=== PATIENT | male | born 1975 | race Caucasian/White ===

== ENCOUNTER 2016-09-29 09:44 | Emergency (ER) | payer OTHER ==
[~2016-09-29] VITALS: Ht 193 cm; Wt 79.6 kg
[2016-09-29 09:51] VITALS: BP 135/83; PULSE 79; TEMP 36.9; O2SAT 97; Ht 193 cm; Wt 79.6 kg
--- NOTE | 2016-09-29 10:03 | EMERGENCY ROOM VISIT NOTE ---
ED Visit Note First contact with patient: 09:55 CHIEF COMPLAINT: Tick bite HISTORY OF PRESENT ILLNESS: This 40-year-old male patient presents to the emergency department ambulatory after they noticed a tick embedded in the right side of his abdomen today. The patient did not try to remove it. It had been on for less than 24 hours. The patient was in the [facility] recently. The patient' s tetanus shot is up-to-date. The patient denies any rashes, fevers, chills, or lightheadedness. The patient denies joint tenderness. REVIEW OF SYSTEMS: A 6 system review of systems was completed with positives and pertinent negatives listed in the HPI. ALLERGIES: No known drug allergies MEDICATIONS: None PMH: None SOCIAL HISTORY: Known PHYSICAL EXAM: Vital Signs: Reviewed Nurse's notes, vital signs stable. GENERAL : This is a 40-year-old male states that, in no acute distress, well-developed, well-nourished. SKIN: There is a tick embedded in the patient's right abdomen. There is a small zone of inflammation and ecchymosis around the spot where the tick is. The skin is otherwise clear. NEUROLOGICAL: Alert and oriented to person place and time, cooperative. Sensory and motor functions grossly intact. ED COURSE: I examined the patient. A tick twister was used to remove the tick. The patient tolerated the procedure well. The area was dressed with bacitracin and a bandage. The patient was given doxycycline 200 mg p.o. for prophylaxis. The patient was discharged home in good condition. DIAGNOSIS: Tick bite and removal DISCHARGE INSTRUCTIONS & TREATMENT: Watch the area for signs of infection. Keep bacitracin on it for 2 days. Follow up with family doctor if he develops symptoms of a target rash, fever, chills, lightheadedness, or joint pain. Current/Historical Medications No Active Prescriptions or Reported Meds Allergies Coded Allergies: No Known Allergies (Unverified , 09/29/16) Vital Signs Date Time Temp Pulse Resp B/P Pulse Ox O2 Delivery O2 Flow Rate FiO2 09/29/16 09:51 36.9 79 17 135/83 97 Room Air Medications Administered Medications (Trade) Dose Ordered Sig/Curtis Route Start Time Stop Time Status Last Admin Dose Admin Doxycycline Hyclate (Vibramycin Cap) 200 mg ONE ONCE PO 09/29/16 10:15 5/29/17 10:16 DC 09/29/16 10:07 200 MG Departure Information Impression Primary Impression: Tick bite Dispostion Home / Self-Care Condition GOOD Prescriptions No Active Prescriptions or Reported Meds Referrals No Doctor, Assigned (PCP) Patient Instructions Bites Tick, Disease Lyme Prevent, My [facility] [employer] 360 Additional Instructions Watch the area for signs of infection. Keep bacitracin on it for 2 days. Follow up with family doctor if he develops symptoms of a target rash, fever, chills, lightheadedness, or joint pain.
[2016-09-29] MEDS ORDERED: DOXYCYCLINE HYCLATE 100 MG CAP PO ONE (10:15)
== END 2016-09-29 10:19 | disposition home or self-care (01) ==
LOC: C.EDB 09:47
DX: S30.861A Insect bite (nonvenomous) of abdominal wall, initial encounter (principal); W57.XXXA Bitten or stung by nonvenomous insect and other nonvenomous arthropods, initial encounter; Y92.821 Forest as the place of occurrence of the external cause